=== PATIENT | female | born 1985 ===

== ENCOUNTER 2020-12-03 14:22 | Outpatient (CLI) | payer BC ==
[2020-12-03 15:02] LABS: BHCG - Serum POSITIVE (NEGATIVE); Pregs Control Background? CLEAR/WHITE (CLR/WHITE); Pregs Control Bar Appear? YES (CONTROL BAR)
== END 2020-12-03 14:23 | disposition home or self-care (01) ==
LOC: MADLAB 14:22
PROVIDERS: ATTEND Family Medicine
DX: N91.2 Amenorrhea, unspecified (principal)
CPT/HCPCS: 36415; 84703